=== PATIENT | female | born 1990 | race African-American/Black ===

== ENCOUNTER 2018-08-10 09:21 | Emergency (ER) | payer OTHER, SELFPAY ==
[2018-08-10] MEDS ORDERED: NA CHLORIDE 0.9% 1,000 ML ONE (10:31)
[2018-08-10] MEDS ORDERED: KETOROLAC 30 MG/ML INJ ONE (10:31)
[2018-08-10 10:35] LABS: Absolute Lymphocytes (CBC) 1.7 K/uL (0.7-4.9); Absolute Monocytes 0.4 K/uL (0.1-1.3); Absolute Neutrophil 4.6 K/uL (1.8-8.0); Basophils % 0.6 % (0-1.3); Eosinophils % 6.2 % (0-4.4); Hematocrit 37.7 % (36.0-45.0); Lymphocytes % 23.2 % (15.3-44.8); MCH 30.7 pg (27.0-35.0); MCV 90.6 fL (80-100); MPV 8.9 fL (7.6-11.3); Monocytes % 5.8 % (3.3-12.3); RBC Red Blood Cell Count 4.16 M/uL (3.86-4.86)
[2018-08-10 10:53] LABS: ALT/SGPT 23 U/L (12-78); AST/SGOT 20 U/L (15-37); Alkaline Phosphatase 59 U/L (45-117); BUN Blood Urea Nitrogen 6 mg/dL (7-18); Bicarbonate 29 mmol/L (21-32); Bilirubin Direct 0.2 mg/dL (0-0.2); Bilirubin Total 0.9 mg/dL (0.2-1.0); Glucose Level 80 mg/dL (74-106); Lipase 175 U/L (73-393); Potassium 3.4 mmol/L (3.5-5.1); Protein, Total 7.9 g/dL (6.4-8.2); Sodium Level 141 mmol/L (136-145)
--- NOTE | 2018-08-10 10:54 | RAD REPORT ---
EXAM DESCRIPTION: CT - Stone Protocol - 08/10/2018 10:38 am CLINICAL HISTORY: Abdominal pain. Flank pain COMPARISON: None. TECHNIQUE: Computed axial tomography of the abdomen pelvis was obtained without oral or IV contrast. Lack of IV and oral contrast limits evaluation of solid organs, bowel, and vessels. Coronal reformat evaristo images were obtained and reviewed. All CT scans are performed using dose optimization technique as appropriate and may include automated exposure control or mA/KV adjustment according to patient size. FINDINGS: A 2 millimeter calculus is present within the left kidney without hydronephrosis. A right renal calculus is not seen. A ureteral calculus is not visualized. A bladder calculus is not present. The liver, spleen, pancreas and adrenals appear grossly normal There is no evidence of diverticulitis. The appendix appears normal Small amount of ascites is seen. A moderate amount of stool is present throughout the colon. IMPRESSION: 2 millimeter nonobstructing left renal calculus
[2018-08-10 11:07] LABS: Urine Blood NEGATIVE (NEG); Urine Glucose NEGATIVE (NEG); Urine Protein NEGATIVE (NEG); Urine pH 7.5 (5.0-7.0)
--- NOTE | 2018-08-10 11:27 | ER ---
Nurse's Notes [facility] Name: Flower Cruz Age: 28 yrs Sex: Female : 1990 Arrival Date: 08/10/2018 Time: 09:34 Bed 8 Private MD: Diagnosis: Low back pain;Calculus of kidney-left Presentation: 08/10 09:34 Presenting complaint: EMS states: Pt c/o back spasms that began this morning and got ph progressively worse, pt reports hx of back spasms, c/o pain in mid back area that radiates down back and around both sides to abdomen. Transition of care: patient was not received from another setting of care. Onset of symptoms was August 10, 2018. Risk Assessment: Do you want to hurt yourself or someone else? Patient reports no desire to harm self or others. Initial Sepsis Screen: Does the patient meet any 2 criteria? No. Patient's initial sepsis screen is negative. Does the patient have a suspected source of infection? No. Patient's initial sepsis screen is negative. Care prior to arrival: Glucose check: 107. 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 - Social history:: Smoking status: Patient/guardian denies using tobacco. - Ebola Screening: : No symptoms or risks identified at this time. Screenin:00 Abuse screen: Denies threats or abuse. Denies injuries from another. Nutritional ph screening: No deficits noted. Tuberculosis screening: No symptoms or risk factors identified. Fall Risk None identified. Assessment: 10:00 General: Appears in no apparent distress. uncomfortable, slender, well groomed, ph Behavior is calm, cooperative, appropriate for age, Denies fever, feeling ill. Pain: Complains of pain in left mid back and right mid back Pain radiates to daniel flanks, RLQ, LLQ. Neuro: Level of Consciousness is awake, alert, obeys commands, Oriented to person, place, time, situation. Cardiovascular: Capillary refill < 3 seconds Patient's skin is warm and dry. Respiratory: Airway is patent Respiratory effort is even, unlabored, Respiratory pattern is regular, symmetrical. GI: Patient currently denies diarrhea, nausea, vomiting. : Reports pain in bilateral flank(s), in lower back. Derm: Skin is intact, is healthy with good turgor. Musculoskeletal: Circulation, motion, and sensation intact. Range of motion: intact in all extremities. 11:00 Reassessment: Patient appears in no apparent distress at this time. Patient and/or ph family updated on plan of care and expected duration. Pain level reassessed. Patient is alert, oriented x 3, equal unlabored respirations, skin warm/dry/pink. Vital Signs: 09:36 BP 119 / 74; Pulse 70; Resp 16; Temp 97.8; Pulse Ox 100% on R/A; Weight 58.97 kg; ph Height 5 ft. 0 in. (152.40 cm); Pain 7/10; 09:36 Body Mass Index 25.39 (58.97 kg, 152.40 cm) ph ED Course: 09:34 Patient arrived in ED. ph 09:36 Triage completed. ph 09:36 Michael Jordan NP is PHCP. pm1 09:36 Duane Tirado MD is Attending Physician. pm1 09:39 Arm band placed on. ph 10:00 Patient has correct armband on for positive identification. Placed in gown. Bed in low ph position. Call light in reach. Side rails up X 1. Pulse ox on. NIBP on. Warm blanket given. 10:01 Emma Ricardo, RADHA is Primary Nurse. ph 10:23 Initial lab(s) drawn, by ut, sent to lab. Inserted saline lock: 22 gauge in left hj antecubital area, using aseptic technique. Blood collected. 10:[address] via wheelchair. sj 10:34 CT completed. Patient tolerated procedure well. Patient moved back from CT. sj 10:38 CT Stone Protocol In Process Unspecified. EDMS 11:40 No provider procedures requiring assistance completed. IV discontinued, intact, hb bleeding controlled, No redness/swelling at site. Pressure dressing applied. Administered Medications: 11:10 Drug: NS 0.9% 1000 ml Route: IV; Rate: 1000 ml; Site: left antecubital; ph 11:40 Follow up: Response: No adverse reaction; IV Status: Completed infusion ph 11:10 Drug: TORadol 30 mg Route: IVP; Site: left antecubital; ph 11:30 Follow up: Response: No adverse reaction; Pain is decreased ph Outcome: 11:26 Discharge ordered by . pm1 11:40 Discharged to home ambulatory. hb 11:40 Condition: stable 11:40 Discharge instructions given to patient, Instructed on discharge instructions, follow up and referral plans. medication usage, Demonstrated understanding of instructions, follow-up care, medications, Prescriptions given X 2. 11:41 Patient left the ED. hb Signatures: Dispatcher [employer] EDMS Winter Gilmore Patricia, RN RN Saad Solis RN RN Michael Jordan, MONTESSORI TEACHER MONTESSORI TEACHER pm1 Addie Slaughter RN RN hb
--- NOTE | 2018-08-10 11:27 | EDPHYS ---
Physician Documentation [facility] Name: Flower Cruz Age: 28 yrs Sex: Female : 1990 Arrival Date: 08/10/2018 Time: 09:34 Bed 8 Private MD: ED Physician Duane Tirado HPI: 08/10 10:00 This 28 yrs old Black Female presents to ER via EMS with complaints of Back Pain. pm1 10:00 The patient presents with pain that is acute, with no known mechanism of injury. The pm1 symptoms are located in the left mid back and right mid back. Onset: The symptoms/episode began/occurred this morning. The pain radiates to the right upper quadrant and left upper quadrant. Associated signs and symptoms: Pertinent negatives: chest pain, dysuria, fever, headache, nausea, vomiting, chest pain. The problem was sustained from unknown cause. Modifying factors: The patient symptoms are alleviated by remaining still, the patient symptoms are aggravated by movement. Severity of symptoms: in the emergency department the symptoms are actually worse. The patient has experienced similar episodes in the past, a few times, and the symptoms today are exactly the same, to previous diagnosis of back muscle spasms. Seen at another ER multiple months ago and given medications for pain. No other further work up was performed. The patient has not recently seen a physician. 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 - Social history:: Smoking status: Patient/guardian denies using tobacco. - Ebola Screening: : No symptoms or risks identified at this time. ROS: 10:00 Constitutional: Negative for fever, chills, and weight loss, Eyes: Negative for injury, pm1 pain, redness, and discharge, ENT: Negative for injury, pain, and discharge, Neck: Negative for injury, pain, and swelling, Cardiovascular: Negative for chest pain, palpitations, and edema, Respiratory: Negative for shortness of breath, cough, wheezing, and pleuritic chest pain, Abdomen/GI: Negative for abdominal pain, nausea, vomiting, diarrhea, and constipation, : Negative for injury, bleeding, discharge, and swelling, MS/Extremity: Negative for injury and deformity. 10:00 Skin: Negative for injury, rash, and discoloration, Neuro: Negative for headache, weakness, numbness, tingling, and seizure. 10:00 Back: Positive for flank pain, bilaterally. Exam: 10:00 Constitutional: This is a well developed, well nourished patient who is awake, alert, pm1 and in no acute distress. Head/Face: Normocephalic, atraumatic. Eyes: Pupils equal round and reactive to light, extra-ocular motions intact. Lids and lashes normal. Conjunctiva and sclera are non-icteric and not injected. Cornea within normal limits. Periorbital areas with no swelling, redness, or edema. ENT: Nares patent. No nasal discharge, no septal abnormalities noted. Tympanic membranes are normal and external auditory canals are clear. Oropharynx with no redness, swelling, or masses, exudates, or evidence of obstruction, uvula midline. Mucous membranes moist. Neck: Trachea midline, no thyromegaly or masses palpated, and no cervical lymphadenopathy. Supple, full range of motion without nuchal rigidity, or vertebral point tenderness. No Meningismus. Chest/axilla: Normal chest wall appearance and motion. Nontender with no deformity. No lesions are appreciated. Cardiovascular: Regular rate and rhythm with a normal S1 and S2. No gallops, murmurs, or rubs. Normal PMI, no JVD. No pulse deficits. Respiratory: Lungs have equal breath sounds bilaterally, clear to auscultation and percussion. No rales, rhonchi or wheezes noted. No increased work of breathing, no retractions or nasal flaring. Abdomen/GI: Soft, non-tender, with normal bowel sounds. No distension or tympany. No guarding or rebound. No evidence of tenderness throughout. 10:00 Skin: Warm, dry with normal turgor. Normal color with no rashes, no lesions, and no evidence of cellulitis. MS/ Extremity: Pulses equal, no cyanosis. Neurovascular intact. Full, normal range of motion. 10:00 Back: normal spinal alignment noted, muscle spasm, is appreciated in the left mid back and right mid back. 10:00 Neuro: Orientation: is normal, Mentation: is normal, Motor: is normal, moves all fours, strength is 5/5 in all extremities, Gait: is steady, at a normal pace, without difficulty. Vital Signs: 09:36 BP 119 / 74; Pulse 70; Resp 16; Temp 97.8; Pulse Ox 100% on R/A; Weight 58.97 kg; ph Height 5 ft. 0 in. (152.40 cm); Pain 7/10; 09:36 Body Mass Index 25.39 (58.97 kg, 152.40 cm) ph MDM: 09:42 Patient medically screened. pm1 11:16 Data reviewed: vital signs. Data interpreted: Pulse oximetry: on room air is 100 %. pm1 Interpretation: normal. Counseling: I had a detailed discussion with the patient and/or guardian regarding: the historical points, exam findings, and any diagnostic results supporting the discharge/admit diagnosis, lab results, radiology results, to return to the emergency department if symptoms worsen or persist or if there are any questions or concerns that arise at home. 08/10 09:51 Order name: Basic Metabolic Panel; Complete Time: 11:15 pm1 08/10 09:51 Order name: CBC with Diff; Complete Time: 11:15 pm1 08/10 09:51 Order name: Creatinine for Radiology; Complete Time: 11:15 pm1 08/10 09:51 Order name: Hepatic Function; Complete Time: 11:15 pm1 08/10 09:51 Order name: Lipase; Complete Time: 11:15 pm1 08/10 10:37 Order name: Urine Dipstick--Ancillary (enter results); Complete Time: 11:15 eb 08/10 09:51 Order name: Urine Dipstick-Ancillary (obtain specimen); Complete Time: 10: pm08/10 09:51 Order name: Urine Test (obtain specimen); Complete Time: 10: pm1 08/10 09:51 Order name: IV Saline Lock; Complete Time: : pm08/10 09:51 Order name: Labs collected and sent; Complete Time: : pm08/10 09:51 Order name: CT Stone Protocol; Complete Time: 11:15 pm1 08/10 10:37 Order name: Urine --Ancillary (enter results); Complete Time: 11:15 eb Administered Medications: 11:10 Drug: NS 0.9% 1000 ml Route: IV; Rate: 1000 ml; Site: left antecubital; ph 11:40 Follow up: Response: No adverse reaction; IV Status: Completed infusion ph 11:10 Drug: TORadol 30 mg Route: IVP; Site: left antecubital; ph 11:30 Follow up: Response: No adverse reaction; Pain is decreased ph Disposition: 13:56 Co-signature as Attending Physician, Duane Tirado MD I agree with the assessment and kdr plan of care. Disposition: 08/10/18 11:26 Discharged to Home. Impression: Low back pain, Calculus of kidney - left. - Condition is Stable. - Discharge Instructions: Back Pain, Adult, Kidney Stones. - Prescriptions for Naprosyn 500 mg Oral Tablet - take 1 tablet by ORAL route 2 times per day take with food; 30 tablet. Cyclobenzaprine 10 mg Oral Tablet - take 1 tablet by ORAL route every 8 hours As needed; 30 tablet. - Medication Reconciliation Form, Thank You Letter, Antibiotic Education, Prescription Opioid Use form. - Work release form (08/10/18 12:22). hb - Follow up: Emergency Department; When: As needed; Reason: Worsening of condition. Follow up: Private Physician; When: 2 - 3 days; Reason: Recheck today's complaints, Continuance of care, Re-evaluation by your physician. - Problem is new. - Symptoms have improved. Signatures: Dispatcher [employer] EDMS Duane Tirado MD MD [facility] Emma Ricardo RN RN Michael Jordan, MARIO RESOURCING CONSULTANT pm1 Addie Slaughter RN RN Corrections: (The following items were deleted from the chart) 11:41 11:26 08/10/2018 11:26 Discharged to Home. Impression: Low back pain; Calculus of hb kidney - left. Condition is Stable. Forms are Medication Reconciliation Form, Thank You Letter, Antibiotic Education, Prescription Opioid Use. Follow up: Emergency Department; When: As needed; Reason: Worsening of condition. Follow up: Private Physician; When: 2 - 3 days; Reason: Recheck today's complaints, Continuance of care, Re-evaluation by your physician. Problem is new. Symptoms have improved. pm1
[2018-08-10 11:44] VITALS: BP 119/74; TEMP 97.8; O2SAT 100
== END 2018-08-10 11:41 | disposition home or self-care (01) ==
LOC: ER 09:21
DX: N20.0 Calculus of kidney (principal)
CPT/HCPCS: 36415; 74176; 76377; 80048; 80076; 81003; 81025; 83690; 85025; 96374; 99284; J7030

== ENCOUNTER 2018-08-13 10:35 | Emergency (ER) | payer SELFPAY ==
[2018-08-13] MEDS ORDERED: HYDROCODONE/APAP 7.5/325 MG TAB ONE (11:28)
--- NOTE | 2018-08-13 11:46 | RAD REPORT ---
EXAM DESCRIPTION: RAD - Knee Right 3 View - 08/13/2018 11:39 am CLINICAL HISTORY: PAIN COMPARISON: No comparisons FINDINGS: No fracture or dislocation seen. Small joint effusion is present.
--- NOTE | 2018-08-13 11:59 | EDPHYS ---
Physician Documentation [facility] Name: Flower Cruz Age: 28 yrs Sex: Female : 1990 Arrival Date: 08/13/2018 Time: 10:38 Bed 10 Private MD: None, None ED Physician Thomas Starr HPI: 08/13 12:01 This 28 yrs old Black Female presents to ER via Ambulatory with complaints of Knee Pain.kb 12:01 The patient presents with decreased range of motion, an injury, pain, swelling, kb tenderness. The complaints affect the medial aspect of right knee. Context: The problem was sustained inside, resulted from twisting of the extremity, dancing, the patient can partially bear weight, the patient is able to ambulate. Onset: The symptoms/episode began/occurred last night. Modifying factors: The symptoms are alleviated by nothing. the symptoms are aggravated by movement, weight bearing, bending knee. Associated signs and symptoms: Pertinent positives: swelling, Pertinent negatives calf tenderness, fever, nausea, numbness, rash, tingling, vomiting, warmth, weakness. Treatment prior to arrival includes: no previous treatment. Severity of symptoms: At their worst the symptoms were moderate, in the emergency department the symptoms are unchanged. The patient has not experienced similar symptoms in the past. The patient has not recently seen a physician. 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 - Social history:: Smoking status: Patient/guardian denies using tobacco, Patient/guardian denies using alcohol. - Ebola Screening: : Patient negative for fever greater than or equal to 101.5 degrees Fahrenheit, and additional compatible Ebola Virus Disease symptoms Patient negative for fever greater than or equal to 101.5 degrees Fahrenheit, and additional compatible Ebola Virus Disease symptoms Patient denies exposure to infectious person Patient denies travel to an Ebola-affected area in the 21 days before illness onset. ROS: 12:00 Constitutional: Negative for fever, chills, and weight loss, Cardiovascular: Negative kb for chest pain, palpitations, and edema, Respiratory: Negative for shortness of breath, cough, wheezing, and pleuritic chest pain, Abdomen/GI: Negative for abdominal pain, nausea, vomiting, diarrhea, and constipation, Skin: Negative for injury, rash, and discoloration, Neuro: Negative for headache, weakness, numbness, tingling, and seizure. 12:00 MS/extremity: Positive for decreased range of motion, pain, swelling, tenderness, of the right knee. Exam: 12:00 Constitutional: This is a well developed, well nourished patient who is awake, alert, kb and in no acute distress. Head/Face: Normocephalic, atraumatic. Chest/axilla: Normal chest wall appearance and motion. Nontender with no deformity. No lesions are appreciated. Cardiovascular: Regular rate and rhythm with a normal S1 and S2. No gallops, murmurs, or rubs. Normal PMI, no JVD. No pulse deficits. Respiratory: Lungs have equal breath sounds bilaterally, clear to auscultation and percussion. No rales, rhonchi or wheezes noted. No increased work of breathing, no retractions or nasal flaring. Abdomen/GI: Soft, non-tender, with normal bowel sounds. No distension or tympany. No guarding or rebound. No evidence of tenderness throughout. Skin: Warm, dry with normal turgor. Normal color with no rashes, no lesions, and no evidence of cellulitis. Neuro: Awake and alert, GCS 15, oriented to person, place, time, and situation. Cranial nerves II-XII grossly intact. Motor strength 5/5 in all extremities. Sensory grossly intact. Cerebellar exam normal. Normal gait. 12:00 Musculoskeletal/extremity: Extremities: grossly normal except: noted in the right knee: decreased ROM, pain, swelling, tenderness, ROM: limited active range of motion, in the right knee, limited active range of motion due to pain, in the right knee, Circulation is intact in all extremities. Sensation intact. Weight bearing: can bear weight with assistance only. Vital Signs: 10:59 BP 127 / 87; Pulse 84; Resp 18; Temp 98.6(O); Pulse Ox 100% on R/A; Weight 58.97 kg; hj Height 5 ft. 0 in. (152.40 cm); Pain 10/10; 10:59 Body Mass Index 25.39 (58.97 kg, 152.40 cm) aury MDM: 11:14 Patient medically screened. kb 12:01 Data reviewed: vital signs, nurses notes. Data interpreted: Pulse oximetry: on room air kb is 100 %. Interpretation: normal. Counseling: I had a detailed discussion with the patient and/or guardian regarding: the historical points, exam findings, and any diagnostic results supporting the discharge/admit diagnosis, radiology results, the need for outpatient follow up, a orthopedic surgeon, to return to the emergency department if symptoms worsen or persist or if there are any questions or concerns that arise at home. 08/13 11:14 Order name: Knee Right 3 View XRAY; Complete Time: 11:47 kb 08/13 11:49 Order name: Knee Immobilizer; Complete Time: 13:05 kb 08/13 11:49 Order name: Crutches; Complete Time: 13:05 kb Administered Medications: 11:22 Drug: [place] (7.5 mg-325 mg) 1 tabs Route: PO; iw Disposition: 08/14 10:42 Co-signature as Attending Physician, Thomas Starr MD. ma2 Disposition: 08/13/18 11:59 Discharged to Home. Impression: Pain in right knee. - Condition is Stable. - Discharge Instructions: Knee Pain, [id number]. - Prescriptions for Cyclobenzaprine 10 mg Oral Tablet - take 1 tablet by ORAL route every 8 hours As needed; 21 tablet. Diclofenac Sodium 75 mg Oral Tablet Sustained Release - take 1 tablet by ORAL route 2 times per day; 30 tablet. - Work release form, Medication Reconciliation Form, Thank You Letter, Antibiotic Education, Prescription Opioid Use form. - Follow up: Emergency Department; When: As needed; Reason: Worsening of condition. Follow up: Private Physician; When: 2 - 3 days; Reason: Recheck today's complaints, Continuance of care, Re-evaluation by your physician. Signatures: Dispatcher [employer] Amaris Cardenas FNP-C FNP-Ckb Williams, Irene RN Saad Gonsalves RN RN hj Alzahri, Mohammad, MD MD ma2 Corrections: (The following items were deleted from the chart) 08/13 13:05 11:59 08/13/2018 11:59 Discharged to Home. Impression: Pain in right knee. Condition is iw Stable. Forms are Medication Reconciliation Form, Thank You Letter, Antibiotic Education, Prescription Opioid Use. Follow up: Emergency Department; When: As needed; Reason: Worsening of condition. Follow up: Private Physician; When: 2 - 3 days; Reason: Recheck today's complaints, Continuance of care, Re-evaluation by your physician. kb
--- NOTE | 2018-08-13 11:59 | ER ---
Nurse's Notes [facility] Name: Flower Cruz Age: 28 yrs Sex: Female : 1990 Arrival Date: 08/13/2018 Time: 10:38 Bed 10 Private MD: None, None Diagnosis: Pain in right knee Presentation: 08/13 10:57 Presenting complaint: Patient states: last night, i twisted my R knee; rep rots hj swelling; pain is 10/10;. Transition of care: patient was not received from another setting of care. Onset of symptoms was August 13, 2018. Risk Assessment: Do you want to hurt yourself or someone else? Patient reports no desire to harm self or others. Initial Sepsis Screen: Does the patient meet any 2 criteria? No. Patient's initial sepsis screen is negative. Does the patient have a suspected source of infection? No. Patient's initial sepsis screen is negative. Care prior to arrival: None. 10:57 Method Of Arrival: Ambulatory 10:57 Acuity: JUWAN 4 hj Triage Assessment: 10:58 General: Appears in no apparent distress. uncomfortable, slender, Behavior is calm, hj cooperative, appropriate for age. Pain: Complains of pain in right knee. 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 - Social history:: Smoking status: Patient/guardian denies using tobacco, Patient/guardian denies using alcohol. - Ebola Screening: : Patient negative for fever greater than or equal to 101.5 degrees Fahrenheit, and additional compatible Ebola Virus Disease symptoms Patient negative for fever greater than or equal to 101.5 degrees Fahrenheit, and additional compatible Ebola Virus Disease symptoms Patient denies exposure to infectious person Patient denies travel to an Ebola-affected area in the 21 days before illness onset. Screenin:58 Abuse screen: Denies threats or abuse. Denies injuries from another. Nutritional hj screening: No deficits noted. Tuberculosis screening: No symptoms or risk factors identified. Fall Risk None identified. Assessment: 11:18 General: Appears in no apparent distress. Behavior is calm, cooperative. Pain: iw Complains of pain in right knee Pain currently is 10 out of 10 on a pain scale. Neuro: Level of Consciousness is awake, alert, obeys commands, Oriented to person, place, time, situation, Moves all extremities. Cardiovascular: Capillary refill < 3 seconds in bilateral fingers Patient's skin is warm and dry. Respiratory: Respiratory effort is even, unlabored, Respiratory pattern is regular, symmetrical. Derm: Skin is intact, is healthy with good turgor. Musculoskeletal: Range of motion: limited in right knee. Vital Signs: 10:59 BP 127 / 87; Pulse 84; Resp 18; Temp 98.6(O); Pulse Ox 100% on R/A; Weight 58.97 kg; hj Height 5 ft. 0 in. (152.40 cm); Pain 10/10; 10:59 Body Mass Index 25.39 (58.97 kg, 152.40 cm) ED Course: 10:38 Patient arrived in ED. mr 10:38 None, None is Private Physician. mr 10:58 Triage completed. hj 10:59 Arm band placed on right wrist. hj 11:00 Patient has correct armband on for positive identification. Bed in low position. Call hj light in reach. Side rails up X 1. Adult w/ patient. 11:13 Sonia Pena, RADHA is Primary Nurse. iw 11:14 Amaris Blanchard FNP-C is PHCP. kb 11:14 Thomas Starr MD is Attending Physician. kb 11:34 No provider procedures requiring assistance completed. Patient did not have IV access iw during this emergency room visit. 11:39 Knee Right 3 View XRAY In Process Unspecified. EDMS Administered Medications: 11:22 Drug: [place] (7.5 mg-325 mg) 1 tabs Route: PO; iw Outcome: 11:59 Discharge ordered by . kb 13:04 Discharged to home ambulatory, with crutches, with family. iw 13:04 Condition: good 13:04 Discharge instructions given to patient, family, Instructed on discharge instructions, follow up and referral plans. medication usage, Demonstrated understanding of instructions, follow-up care, medications, Prescriptions given X 2. 13:05 Patient left the ED. iw Signatures: Dispatcher [employer] EDMS Amaris Blanchard FNP-C FNP-Shital Jones mr Sonia Pena, RADHA GARCIA iw Saad Solis RN RN hj Corrections: (The following items were deleted from the chart) 11:00 10:59 Pulse 84bpm; Resp 18bpm; Pulse Ox 100% RA; Temp 98.6F Oral; 58.97 kg; Height 5 hj ft. 0 in.; BMI: 25.3; Pain 08/09; hj
[2018-08-13 13:09] VITALS: BP 127/87; TEMP 98.6; O2SAT 100
== END 2018-08-13 13:05 | disposition home or self-care (01) ==
LOC: ER 10:35
DX: M25.561 Pain in right knee (principal)
CPT/HCPCS: 99283

== ENCOUNTER 2018-10-08 21:44 | Emergency (ER) | payer SELFPAY ==
[2018-10-08] MEDS ORDERED: DIAZEPAM 5 MG TABLET ONE (22:30)
[2018-10-08 23:09] LABS: Urine Blood NEGATIVE (NEG); Urine Glucose NEGATIVE (NEG); Urine Protein NEGATIVE (NEG)
--- NOTE | 2018-10-08 23:28 | ER ---
Nurse's Notes [facility] Name: Flower Cruz Age: 28 yrs Sex: Female : 1990 Arrival Date: 10/08/2018 Time: 21:46 Bed 13 Private MD: Diagnosis: Muscle spasm of back Presentation: 10/08 21:54 Presenting complaint: Patient states: all over back spasms. pt stated 3rd time in the ak1 past few months, last time was dx kidney stone. pt stated pain started at noon today. Transition of care: patient was not received from another setting of care. Onset of symptoms was October 08, 2018. Risk Assessment: Do you want to hurt yourself or someone else? Patient reports no desire to harm self or others. Initial Sepsis Screen: Does the patient meet any 2 criteria? No. Patient's initial sepsis screen is negative. Does the patient have a suspected source of infection? No. Patient's initial sepsis screen is negative. Care prior to arrival: None. 21:54 Method Of Arrival: Ambulatory ak1 21:54 Acuity: JUWAN 4 ak1 Triage Assessment: 21:55 General: Appears in no apparent distress. Behavior is calm, cooperative. Pain: ak1 Complains of pain in back. EENT: No signs and/or symptoms were reported regarding the EENT system. Neuro: No deficits noted. Cardiovascular: No deficits noted. Respiratory: No deficits noted. GI: No signs and/or symptoms were reported involving the gastrointestinal system. : No signs and/or symptoms were reported regarding the genitourinary system. Denies burning with urination. Derm: No signs and/or symptoms reported regarding the dermatologic system. Musculoskeletal: Reports pain in back since noon today. 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 - Social history:: Smoking status: Patient/guardian denies using tobacco. - Ebola Screening: : No symptoms or risks identified at this time. Screenin:56 Abuse screen: Denies threats or abuse. Denies injuries from another. Nutritional ak1 screening: No deficits noted. Tuberculosis screening: No symptoms or risk factors identified. Fall Risk None identified. Assessment: 22:06 General: Appears in no apparent distress. uncomfortable, Behavior is calm, cooperative, jd3 appropriate for age. Pain: Complains of pain in back Quality of pain is described as aching, sharp. Neuro: Level of Consciousness is awake, alert, obeys commands, Oriented to person, place, time, situation. Cardiovascular: Capillary refill < 3 seconds Patient's skin is warm and dry. Respiratory: Airway is patent Respiratory effort is even, unlabored, Respiratory pattern is regular, symmetrical. GI: No signs and/or symptoms were reported involving the gastrointestinal system. : No signs and/or symptoms were reported regarding the genitourinary system. Denies burning with urination, inability to void. EENT: No signs and/or symptoms were reported regarding the EENT system. Derm: Skin is intact, Skin is dry, Skin is normal, Skin temperature is warm. Musculoskeletal: Circulation, motion, and sensation intact. Range of motion: intact in all extremities. 22:48 Reassessment: Patient appears in no apparent distress at this time. Patient and/or jd3 family updated on plan of care and expected duration. Pain level reassessed. Patient is alert, oriented x 3, equal unlabored respirations, skin warm/dry/pink. 23:42 Reassessment: Patient appears in no apparent distress at this time. Patient and/or jd3 family updated on plan of care and expected duration. Pain level reassessed. Patient is alert, oriented x 3, equal unlabored respirations, skin warm/dry/pink. Patient states feeling better. Vital Signs: 21:53 BP 135 / 93; Pulse 74; Resp 16; Temp 97.8(O); Pulse Ox 100% on R/A; Weight 58.97 kg ak1 (R); Height 5 ft. 0 in. (152.40 cm) (R); Pain 8/10; 22:48 BP 132 / 89; Pulse 65; Resp 16 S; Pulse Ox 97% on R/A; jd3 21:53 Body Mass Index 25.39 (58.97 kg, 152.40 cm) ak1 ED Course: 21:46 Patient arrived in ED. ds1 21:48 Calderon, Earle, RN is Primary Nurse. jd3 21:52 Jayme Escalante PA is PHCP. jr8 21:52 Quan Ritter MD is Attending Physician. jr8 21:53 Arm band placed on Patient placed in an exam room, on a stretcher, on pulse oximetry, ak1 Patient notified of wait time. 21:55 Triage completed. ak1 21:56 Patient has correct armband on for positive identification. Bed in low position. Call ak1 light in reach. Side rails up X 1. Adult w/ patient. Pulse ox on. NIBP on. 23:39 No provider procedures requiring assistance completed. Patient did not have IV access jd3 during this emergency room visit. Administered Medications: 22:28 Drug: Valium 5 mg Route: PO; jd3 23:38 Follow up: Response: No adverse reaction jd3 Outcome: 23:27 Discharge ordered by . jr8 23:39 Discharged to home ambulatory, with family. jd3 23:39 Condition: stable 23:39 Discharge instructions given to patient, family, Instructed on discharge instructions, follow up and referral plans. medication usage, Demonstrated understanding of instructions, follow-up care, medications, Prescriptions given X 2. 23:43 Patient left the ED. jd3 Signatures: Jhoana Santoro ds1 Jayme Escalante PA PA jr8 Adrienne Alva RN RN ak1 Earle Calderon RN RN jd3 Corrections: (The following items were deleted from the chart) 22:07 21:58 General: Appears jd3 jd3
--- NOTE | 2018-10-08 23:28 | EDPHYS ---
Physician Documentation [facility] Name: Flower Cruz Age: 28 yrs Sex: Female : 1990 Arrival Date: 10/08/2018 Time: 21:46 Bed 13 Private MD: ED Physician Quan Ritter HPI: 10/08 22:59 This 28 yrs old Black Female presents to ER via Ambulatory with complaints of Back jr8 Spasms. 22:59 Onset: The symptoms/episode began/occurred acutely, today. Associated signs and jr8 symptoms: The patient has no apparent associated signs or symptoms. Modifying factors: The patient symptoms are alleviated by nothing, the patient symptoms are aggravated by nothing. The patient has experienced similar episodes in the past, a few times. The patient has not recently seen a physician. 22:59 Patient stated that she was getting up out of a chair when she felt her back starting jr8 to spasm. Since then pain with any movement. Denies abdominal pain, n/v/d, bowel, or bladder dysfunction. Stated that she has had this a few other time in the past. Denies injury . 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 - Social history:: Smoking status: Patient/guardian denies using tobacco. - Ebola Screening: : No symptoms or risks identified at this time. ROS: 22:59 Eyes: Negative for injury, pain, redness, and discharge, ENT: Negative for injury, jr8 pain, and discharge, Neck: Negative for injury, pain, and swelling, Cardiovascular: Negative for chest pain, palpitations, and edema, Respiratory: Negative for shortness of breath, cough, wheezing, and pleuritic chest pain, Abdomen/GI: Negative for abdominal pain, nausea, vomiting, diarrhea, and constipation, MS/Extremity: Negative for injury and deformity, Skin: Negative for injury, rash, and discoloration, Neuro: Negative for headache, weakness, numbness, tingling, and seizure. 22:59 Back: Positive for pain at rest, pain with movement. Exam: 22:59 Eyes: Pupils equal round and reactive to light, extra-ocular motions intact. Lids and jr8 lashes normal. Conjunctiva and sclera are non-icteric and not injected. Cornea within normal limits. Periorbital areas with no swelling, redness, or edema. ENT: Nares patent. No nasal discharge, no septal abnormalities noted. Tympanic membranes are normal and external auditory canals are clear. Oropharynx with no redness, swelling, or masses, exudates, or evidence of obstruction, uvula midline. Mucous membranes moist. Neck: Trachea midline, no thyromegaly or masses palpated, and no cervical lymphadenopathy. Supple, full range of motion without nuchal rigidity, or vertebral point tenderness. No Meningismus. Cardiovascular: Regular rate and rhythm with a normal S1 and S2. No gallops, murmurs, or rubs. Normal PMI, no JVD. No pulse deficits. Respiratory: Lungs have equal breath sounds bilaterally, clear to auscultation and percussion. No rales, rhonchi or wheezes noted. No increased work of breathing, no retractions or nasal flaring. Abdomen/GI: Soft, non-tender, with normal bowel sounds. No distension or tympany. No guarding or rebound. No evidence of tenderness throughout. Skin: Warm, dry with normal turgor. Normal color with no rashes, no lesions, and no evidence of cellulitis. MS/ Extremity: Pulses equal, no cyanosis. Neurovascular intact. Full, normal range of motion. Neuro: Awake and alert, GCS 15, oriented to person, place, time, and situation. Cranial nerves II-XII grossly intact. Motor strength 5/5 in all extremities. Sensory grossly intact. Cerebellar exam normal. Normal gait. 22:59 Back: pain, that is moderate, of the left subscapular area, right subscapular area, left low back, left mid back, right mid back and right low back, ROM is painful, normal spinal alignment noted, CVA tenderness, is absent, muscle spasm, is appreciated in the left low back, left mid back, right mid back and right low back. Vital Signs: 21:53 BP 135 / 93; Pulse 74; Resp 16; Temp 97.8(O); Pulse Ox 100% on R/A; Weight 58.97 kg ak1 (R); Height 5 ft. 0 in. (152.40 cm) (R); Pain 8/10; 22:48 BP 132 / 89; Pulse 65; Resp 16 S; Pulse Ox 97% on R/A; jd3 21:53 Body Mass Index 25.39 (58.97 kg, 152.40 cm) ak1 MDM: 21:52 Patient medically screened. jr8 23:26 Data reviewed: vital signs, nurses notes, lab test result(s), and as a result, I will jr8 discharge patient. Data interpreted: Pulse oximetry: on room air is 97 %. Interpretation: normal. Counseling: I had a detailed discussion with the patient and/or guardian regarding: the historical points, exam findings, and any diagnostic results supporting the discharge/admit diagnosis, lab results, the need for outpatient follow up, a family practitioner, to return to the emergency department if symptoms worsen or persist or if there are any questions or concerns that arise at home. Response to treatment: the patient's symptoms have markedly improved after treatment. ED course: Patient resting comfortably in exam room. Pain less. Able to move easier. Will send home on medicine to help. Advised no heavy lifting for one week. Heat as needed. To follow up with PCP . 10/08 22:43 Order name: Urine Dipstick--Ancillary (enter results) 4 10/08 22:43 Order name: Urine --Ancillary (enter results); Complete Time: 23:23 ag4 10/08 22:28 Order name: Urine Dipstick-Ancillary (obtain specimen); Complete Time: 22:28 jd3 10/08 22:28 Order name: Urine Test (obtain specimen); Complete Time: 22:28 jd3 Administered Medications: 22:28 Drug: Valium 5 mg Route: PO; jd3 23:38 Follow up: Response: No adverse reaction jd3 Disposition: 10/09 01:35 Co-signature as Attending Physician, Quan Ritter MD I agree with the assessment and 4 plan of care. Disposition: 10/08/18 23:27 Discharged to Home. Impression: Muscle spasm of back. - Condition is Stable. - Discharge Instructions: Muscle Cramps and Spasms, Back Exercises, [id number], Heat Therapy. - Prescriptions for Ibuprofen 800 mg Oral Tablet - take 1 tablet by ORAL route every 12 hours As needed take with food; 20 tablet. Zanaflex 4 mg Oral Tablet - take 1 tablet by ORAL route every 8 hours As needed; 20 tablet. - Work release form, Medication Reconciliation Form, Thank You Letter, Antibiotic Education, Prescription Opioid Use form. - Follow up: Private Physician; When: 2 - 3 days; Reason: Recheck today's complaints, Continuance of care, Re-evaluation by your physician. - Problem is new. - Symptoms have improved. Signatures: Dispatcher [employer] EDMS Jayme Escalante PA PA jr8 Adrienne Alva, RN RN ak1 Earle Calderon RN RN jd3 Quan Ritter MD MD tw4 Corrections: (The following items were deleted from the chart) 10/08 23:43 23:27 10/08/2018 23:27 Discharged to Home. Impression: Muscle spasm of back. Condition jd3 is Stable. Forms are Medication Reconciliation Form, Thank You Letter, Antibiotic Education, Prescription Opioid Use. Follow up: Private Physician; When: 2 - 3 days; Reason: Recheck today's complaints, Continuance of care, Re-evaluation by your physician. Problem is new. Symptoms have improved. jr8
[2018-10-08 23:48] VITALS: TEMP 97.8
[2018-10-08 23:49] VITALS: BP 132/89; O2SAT 97
== END 2018-10-08 23:43 | disposition home or self-care (01) ==
LOC: ER 21:44
DX: M62.830 Muscle spasm of back (principal)
CPT/HCPCS: 81003; 81025; 99283

== ENCOUNTER 2018-11-02 18:19 | Emergency (ER) | payer SELFPAY ==
--- NOTE | 2018-11-02 20:20 | ER ---
Nurse's Notes [facility] Name: Flower Cruz Age: 28 yrs Sex: Female : 1990 Arrival Date: 11/02/2018 Time: 18:20 Bed 17 Private MD: None, None Diagnosis: Muscle spasm Presentation: 11/02 18:31 Presenting complaint: Patient states: back spasms on and off for the past two months. ch getting worse today my work sent me home and said I have to get it checked. Transition of care: patient was not received from another setting of care. Onset of symptoms was August 2018. Risk Assessment: Do you want to hurt yourself or someone else? Patient reports no desire to harm self or others. Initial Sepsis Screen: Does the patient meet any 2 criteria? No. Patient's initial sepsis screen is negative. Does the patient have a suspected source of infection? No. Patient's initial sepsis screen is negative. Care prior to arrival: None. 18:31 Method Of Arrival: Ambulatory 18:31 Acuity: JUWAN 3 Triage Assessment: 18:32 General: Appears in no apparent distress. comfortable, Behavior is calm, cooperative, ch appropriate for age. Pain: Complains of pain in left scapular area, left subscapular area, thoracic area, lumbar area, left low back and left mid back Pain currently is 8 out of 10 on a pain scale. Musculoskeletal: Circulation, motion, and sensation intact. Capillary refill < 3 seconds, in bilateral fingers. toes. Swelling absent. 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 - Social history:: Smoking status: Patient/guardian denies using tobacco, Patient/guardian denies using alcohol, street drugs. - Ebola Screening: : Patient negative for fever greater than or equal to 101.5 degrees Fahrenheit, and additional compatible Ebola Virus Disease symptoms Patient denies exposure to infectious person Patient denies travel to an Ebola-affected area in the 21 days before illness onset No symptoms or risks identified at this time. Screenin:40 Abuse screen: Denies threats or abuse. Denies injuries from another. Nutritional tl1 screening: No deficits noted. Tuberculosis screening: No symptoms or risk factors identified. Fall Risk None identified. Assessment: 19:37 General: Appears in no apparent distress. Behavior is calm, cooperative, appropriate tl1 for age. Pain: Complains of pain in back and left mid back and left low back and lumbar area and thoracic area and left subscapular area and left scapular area. 19:38 Neuro: Level of Consciousness is awake, alert, obeys commands, Oriented to person, tl1 place, time, situation, News Operations Manager are equal bilaterally Moves all extremities. Gait is steady. Cardiovascular: No deficits noted. Respiratory: Airway is patent Trachea midline Respiratory effort is even, unlabored, Breath sounds are clear bilaterally. GI: Abdomen is non-distended, Bowel sounds present X 4 quads. : No signs and/or symptoms were reported regarding the genitourinary system. EENT: No signs and/or symptoms were reported regarding the EENT system. Derm: No signs and/or symptoms reported regarding the dermatologic system. Musculoskeletal: Circulation, motion, and sensation intact. Capillary refill < 3 seconds, Range of motion: intact in all extremities, Reports pain in back and left mid back and left low back and lumbar area and thoracic area and left subscapular area and left scapular area. Vital Signs: 18:32 BP 141 / 99; Pulse 74; Resp 16; Temp 99.3; Pulse Ox 99% ; Weight 58.97 kg; Height 5 ft. (152.40 cm); Pain 8/10; 19:15 BP 138 / 99; Pulse 61; Resp 17; Pulse Ox 97% ; tl1 20:32 BP 142 / 97; Pulse 69; Resp 16; Temp 99; Pulse Ox 98% on R/A; Pain 8/10; tl1 18:32 Body Mass Index 25.39 (58.97 kg, 152.40 cm) ED Course: 18:20 Patient arrived in ED. sb2 18:21 None, None is Private Physician. sb2 18:32 Triage completed. 18:32 Arm band placed on right wrist. Patient placed in waiting room. 18:32 Patient has correct armband on for positive identification. Bed in low position. tl1 19:15 Dora Caprio, RN is Primary Nurse. tl1 19:37 Elijah Lopez PA is PHCP. [facility] 19:37 Duane Tirado MD is Attending Physician. [facility] 20:32 No provider procedures requiring assistance completed. Patient did not have IV access tl1 during this emergency room visit. Administered Medications: No medications were administered Outcome: 20:19 Discharge ordered by MD. [facility] 20:33 Discharged to home ambulatory, with family. tl1 20:33 Condition: good 20:33 Discharge instructions given to patient, Instructed on discharge instructions, follow up and referral plans. medication usage, Demonstrated understanding of instructions, follow-up care, medications, Prescriptions given X 2. 20:46 Patient left the ED. tl1 Signatures: Katlyn Hamlin, RN RN Elijah Lopez PA PA [facility] Dora Carpio, RN RN tl1 Galina Sampson sb2
--- NOTE | 2018-11-02 20:20 | EDPHYS ---
Physician Documentation [facility] Name: Flower Cruz Age: 28 yrs Sex: Female : 1990 Arrival Date: 11/02/2018 Time: 18:20 Bed 17 Private MD: None, None ED Physician Duane Tirado HPI: 11/02 20:11 This 28 yrs old Black Female presents to ER via Ambulatory with complaints of Back Pain jmm - SPASMS. 20:11 The patient presents with pain that is acute, with no known mechanism of injury. Onset: jmm The symptoms/episode began/occurred gradually. The pain does not radiate. Associated signs and symptoms: Pertinent negatives: fever, SOB. Patient complains of left sided subscapular back pain which is similar to previous episodes over the past 2 month. Patient denies chest pain or shortness of breath. . 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 - Social history:: Smoking status: Patient/guardian denies using tobacco, Patient/guardian denies using alcohol, street drugs. - Ebola Screening: : Patient negative for fever greater than or equal to 101.5 degrees Fahrenheit, and additional compatible Ebola Virus Disease symptoms Patient denies exposure to infectious person Patient denies travel to an Ebola-affected area in the 21 days before illness onset No symptoms or risks identified at this time. ROS: 20:11 Constitutional: Negative for fever, chills, and weight loss, Cardiovascular: Negative jmm for chest pain, palpitations, and edema, Respiratory: Negative for shortness of breath, cough, wheezing, and pleuritic chest pain. 20:11 Back: Positive for pain with movement. 20:11 All other systems are negative. Exam: 20:11 Head/Face: atraumatic. Eyes: EOMI, no conjunctival erythema appreciated ENT: Moist jmm Mucus Membranes Neck: Trachea midline, Supple Chest/axilla: Normal chest wall appearance and motion. Cardiovascular: Regular rate and rhythm. No edema appreciated Respiratory: Normal respirations, no respiratory distress appreciated Abdomen/GI: Non distended, soft 20:11 Constitutional: The patient appears in no acute distress, alert, awake. 20:11 Back: left subscapular pain on palpation, no vert pt tenderness. 20:11 Musculoskeletal/extremity: ROM: intact in all extremities. 20:11 Neuro: Orientation: is normal, Mentation: is normal, Memory: is normal, Gait: is steady. 20:11 Psych: Behavior/mood is pleasant, cooperative. Vital Signs: 18:32 BP 141 / 99; Pulse 74; Resp 16; Temp 99.3; Pulse Ox 99% ; Weight 58.97 kg; Height 5 ft. ch (152.40 cm); Pain 8/10; 19:15 BP 138 / 99; Pulse 61; Resp 17; Pulse Ox 97% ; tl1 20:32 BP 142 / 97; Pulse 69; Resp 16; Temp 99; Pulse Ox 98% on R/A; Pain 8/10; tl1 18:32 Body Mass Index 25.39 (58.97 kg, 152.40 cm) MDM: 19:59 Patient medically screened. [facility] 20:11 Data reviewed: vital signs, nurses notes. Counseling: I had a detailed discussion with vern the patient and/or guardian regarding: the historical points, exam findings, and any diagnostic results supporting the discharge/admit diagnosis, the need for outpatient follow up, to return to the emergency department if symptoms worsen or persist or if there are any questions or concerns that arise at home. ED course: Symptoms appear chronic. I do not currently suspect PE. Pain is elicited on ROM and palpation. Patient prescribed muscle relaxer and advised to follow up PCP. Patient is otherwise given strict return precautions. Patient understood and agrees with the plan of care. . 11/02 20:16 Order name: Urine Dipstick--Ancillary (enter results) co 11/02 20:16 Order name: Urine --Ancillary (enter results) co 11/02 20:07 Order name: Urine Dipstick-Ancillary (obtain specimen); Complete Time: 20:15 therese 11/02 20:07 Order name: Urine Test (obtain specimen); Complete Time: 20:15 [facility] Administered Medications: No medications were administered Disposition: 11/03 07:15 Co-signature as Attending Physician, Duane Tirado MD I agree with the assessment and kdr plan of care. Disposition: 11/02/18 20:19 Discharged to Home. Impression: Muscle spasm. - Condition is Stable. - Discharge Instructions: Spasticity. - Prescriptions for Zanaflex 4 mg Oral Tablet - take 1 tablet by ORAL route every 8 hours As needed; 20 tablet. Ibuprofen 800 mg Oral Tablet - take 1 tablet by ORAL route every 8 hours As needed take with food; 30 tablet. - Medication Reconciliation Form, Thank You Letter, Antibiotic Education, Prescription Opioid Use, Work release form form. - Follow up: Private Physician; When: 2 - 3 days; Reason: Recheck today's complaints, Continuance of care, Re-evaluation by your physician. Signatures: Dispatcher [employer] EDKatlyn Green, RN RN Duane Blanco MD MD kdr Mickail, Joel, PA PA jmm Lasagna, Tonya, RN RN tl1 Corrections: (The following items were deleted from the chart) 11/02 20:46 20:19 11/02/2018 20:19 Discharged to Home. Impression: Muscle spasm. Condition is tl1 Stable. Forms are Medication Reconciliation Form, Thank You Letter, Antibiotic Education, Prescription Opioid Use. Follow up: Private Physician; When: 2 - 3 days; Reason: Recheck today's complaints, Continuance of care, Re-evaluation by your physician. vern
[2018-11-02 21:08] LABS: Urine Blood NEGATIVE (NEG); Urine Glucose NEGATIVE (NEG); Urine Protein NEGATIVE (NEG)
[2018-11-02 21:10] VITALS: BP 142/97; TEMP 99; O2SAT 98
== END 2018-11-02 20:46 | disposition home or self-care (01) ==
LOC: ER 18:19
DX: M62.830 Muscle spasm of back (principal)
CPT/HCPCS: 81003; 81025; 99282

== ENCOUNTER 2018-11-05 11:46 | Emergency (ER) | payer SELFPAY ==
[2018-11-05] MEDS ORDERED: METHYLPREDNISOLONE 125 MG INJ ONE (13:53)
[2018-11-05] MEDS ORDERED: LEVALBUTEROL 1.25 MG/3 ML NEB ONE (13:53)
--- NOTE | 2018-11-05 14:12 | RAD REPORT ---
EXAM DESCRIPTION: RAD - Chest Pa And Lat (2 Views) - 11/05/2018 1:55 pm CLINICAL HISTORY: Cough;Dyspnea Chest pain. COMPARISON: No comparisons FINDINGS: The lungs are clear. The heart is normal in size. No displaced fractures. IMPRESSION: No acute or concerning finding suspected.
--- NOTE | 2018-11-05 14:40 | ER ---
Nurse's Notes [facility] Name: Flower Cruz Age: 28 yrs Sex: Female : 1990 Arrival Date: 11/05/2018 Time: 11:47 Bed 23 Private MD: None, None Diagnosis: Acute bronchitis Presentation: 11/05 11:56 Presenting complaint: Patient states: difficulty breathing on exertion and chest pains, iw started last night, +cough, clear mucous, no fever, no hx of asthma. Transition of care: patient was not received from another setting of care. Onset of symptoms was November 04, 2018. Risk Assessment: Do you want to hurt yourself or someone else? Patient reports no desire to harm self or others. Initial Sepsis Screen: Does the patient meet any 2 criteria? No. Patient's initial sepsis screen is negative. Does the patient have a suspected source of infection? No. Patient's initial sepsis screen is negative. Care prior to arrival: None. 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 - Social history:: Smoking status: Patient/guardian denies using tobacco. - Ebola Screening: : Patient negative for fever greater than or equal to 101.5 degrees Fahrenheit, and additional compatible Ebola Virus Disease symptoms Patient denies exposure to infectious person Patient denies travel to an Ebola-affected area in the 21 days before illness onset No symptoms or risks identified at this time. Screenin:08 Abuse screen: Denies threats or abuse. Nutritional screening: No deficits noted. tl3 Tuberculosis screening: No symptoms or risk factors identified. Fall Risk None identified. Assessment: 13:08 General: Appears uncomfortable, slender, well groomed, well developed, well nourished, tl3 Behavior is calm, cooperative, appropriate for age. Pain: Complains of pain in mid chest with deep breathing. Neuro: Level of Consciousness is awake, alert, obeys commands, Oriented to person, place, time, situation, Appropriate for age. Cardiovascular: Heart tones S1 S2 present Patient's skin is warm and dry. Respiratory: Airway is patent Respiratory effort is even, unlabored, Respiratory pattern is regular, symmetrical, Breath sounds are coarse bilaterally. Breath sounds with wheezes in right upper lobe. Respiratory: Reports cough that is since yesterday. GI: No deficits noted. No signs and/or symptoms were reported involving the gastrointestinal system. : No deficits noted. No signs and/or symptoms were reported regarding the genitourinary system. EENT:. Derm: No deficits noted. No signs and/or symptoms reported regarding the dermatologic system. Musculoskeletal: No deficits noted. No signs and/or symptoms reported regarding the musculoskeletal system. 15:05 Reassessment: Patient appears in no apparent distress at this time. Patient and/or ed1 family updated on plan of care and expected duration. Pain level reassessed. Patient is alert, oriented x 3, equal unlabored respirations, skin warm/dry/pink. Patient states feeling better. Patient states symptoms have improved. Vital Signs: 11:57 BP 137 / 99; Pulse 78; Resp 18; Temp 98.3; Pulse Ox 98% on R/A; Weight 58.97 kg; Height iw 5 ft. 0 in. (152.40 cm); Pain 7/10; 13:08 BP 153 / 103; Pulse 78; Resp 22; Pulse Ox 100% on R/A; tl3 15:05 BP 145 / 102; Pulse 77; Resp 17; Pulse Ox 100% on R/A; Pain 4/10; ed1 11:57 Body Mass Index 25.39 (58.97 kg, 152.40 cm) iw ED Course: 11:47 Patient arrived in ED. sb2 11:47 None, None is Private Physician. sb2 11:57 Triage completed. iw 11:58 Arm band placed on. iw 13:06 Jayme Escalante PA is PHCP. jr8 13:06 Eladio Jeffries MD is Attending Physician. jr8 13:07 Minal Dunlap, RADHA is Primary Nurse. tl3 13:08 Patient has correct armband on for positive identification. Bed in low position. Call tl3 light in reach. Side rails up X 1. manufacturing test engineer on. Pulse ox on. 13:50 Patient moved to radiology. tl3 13:50 No provider procedures requiring assistance completed. Patient did not have IV access tl3 during this emergency room visit. 13:55 XRAY Chest Pa And Lat (2 Views) In Process Unspecified. EDMS Administered Medications: 13:50 Drug: SOLU-Medrol 125 mg Route: IM; Site: right gluteus; tl3 14:03 Follow up: Response: No adverse reaction tl3 14:03 Drug: Xopenex 1.25 mg Route: Inhalation; tl3 Outcome: 14:40 Discharge ordered by MD. tomlinson 15:05 Discharged to home ambulatory. ed1 15:05 Condition: good 15:05 Discharge instructions given to patient, Instructed on discharge instructions, follow up and referral plans. medication usage, Demonstrated understanding of instructions, follow-up care, medications, Prescriptions given X 3. 15:06 Patient left the ED. ed1 Signatures: Dispatcher [employer] EDMS Sonia Pena, RN RN iw Apolonia Pinedo LVN GLASSBLOWER ed1 Jayme Escalante PA PA jr8 Galina Sampson sb2 Minal Dunlap, RADHA RN tl3
--- NOTE | 2018-11-05 14:41 | EDPHYS ---
Physician Documentation [facility] Name: Flower Cruz Age: 28 yrs Sex: Female : 1990 Arrival Date: 11/05/2018 Time: 11:47 Bed 23 Private MD: None, None ED Physician Eladio Jeffries HPI: 11/05 14:35 This 28 yrs old Black Female presents to ER via Ambulatory with complaints of Painful jr8 Cough. 14:35 The patient or guardian reports cough, that is intermittent, described as mild, with no jr8 sputum, difficulty breathing. Onset: The symptoms/episode began/occurred acutely, today. Severity of symptoms: At their worst the symptoms were mild, in the emergency department the symptoms are unchanged. Modifying factors: The symptoms are alleviated by nothing, the symptoms are aggravated by nothing. Associated signs and symptoms: The patient has no apparent associated signs or symptoms. The patient has not experienced similar symptoms in the past. The patient has not recently seen a physician. 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 - Social history:: Smoking status: Patient/guardian denies using tobacco. - Ebola Screening: : Patient negative for fever greater than or equal to 101.5 degrees Fahrenheit, and additional compatible Ebola Virus Disease symptoms Patient denies exposure to infectious person Patient denies travel to an Ebola-affected area in the 21 days before illness onset No symptoms or risks identified at this time. ROS: 14:35 Eyes: Negative for injury, pain, redness, and discharge, ENT: Negative for injury, jr8 pain, and discharge, Neck: Negative for injury, pain, and swelling, Cardiovascular: Negative for chest pain, palpitations, and edema, Abdomen/GI: Negative for abdominal pain, nausea, vomiting, diarrhea, and constipation, Back: Negative for injury and pain, MS/Extremity: Negative for injury and deformity, Skin: Negative for injury, rash, and discoloration, Neuro: Negative for headache, weakness, numbness, tingling, and seizure. 14:35 Respiratory: Positive for cough, with no reported sputum, shortness of breath, wheezing. Exam: 14:35 Eyes: Pupils equal round and reactive to light, extra-ocular motions intact. Lids and jr8 lashes normal. Conjunctiva and sclera are non-icteric and not injected. Cornea within normal limits. Periorbital areas with no swelling, redness, or edema. ENT: Nares patent. No nasal discharge, no septal abnormalities noted. Tympanic membranes are normal and external auditory canals are clear. Oropharynx with no redness, swelling, or masses, exudates, or evidence of obstruction, uvula midline. Mucous membranes moist. Neck: Trachea midline, no thyromegaly or masses palpated, and no cervical lymphadenopathy. Supple, full range of motion without nuchal rigidity, or vertebral point tenderness. No Meningismus. Cardiovascular: Regular rate and rhythm with a normal S1 and S2. No gallops, murmurs, or rubs. Normal PMI, no JVD. No pulse deficits. Abdomen/GI: Soft, non-tender, with normal bowel sounds. No distension or tympany. No guarding or rebound. No evidence of tenderness throughout. Back: No spinal tenderness. No costovertebral tenderness. Full range of motion. Skin: Warm, dry with normal turgor. Normal color with no rashes, no lesions, and no evidence of cellulitis. MS/ Extremity: Pulses equal, no cyanosis. Neurovascular intact. Full, normal range of motion. Neuro: Awake and alert, GCS 15, oriented to person, place, time, and situation. Cranial nerves II-XII grossly intact. Motor strength 5/5 in all extremities. Sensory grossly intact. Cerebellar exam normal. Normal gait. 14:35 Respiratory: the patient does not display signs of respiratory distress, Respirations: tachypnea, that is mild, Breath sounds: wheezing: expiratory that is mild. Vital Signs: 11:57 BP 137 / 99; Pulse 78; Resp 18; Temp 98.3; Pulse Ox 98% on R/A; Weight 58.97 kg; Height iw 5 ft. 0 in. (152.40 cm); Pain 7/10; 13:08 BP 153 / 103; Pulse 78; Resp 22; Pulse Ox 100% on R/A; tl3 15:05 BP 145 / 102; Pulse 77; Resp 17; Pulse Ox 100% on R/A; Pain 4/10; ed1 11:57 Body Mass Index 25.39 (58.97 kg, 152.40 cm) iw MDM: 13:07 Patient medically screened. jr8 14:35 Data reviewed: vital signs, nurses notes, radiologic studies, plain films, and as a jr8 result, I will discharge patient. Data interpreted: Pulse oximetry: on room air is 100 %. Interpretation: normal. Counseling: I had a detailed discussion with the patient and/or guardian regarding: the historical points, exam findings, and any diagnostic results supporting the discharge/admit diagnosis, radiology results, the need for outpatient follow up, a family practitioner, to return to the emergency department if symptoms worsen or persist or if there are any questions or concerns that arise at home. Response to treatment: the patient's symptoms have markedly improved after treatment. 14:39 Counseling: I had a detailed discussion with the patient and/or guardian regarding: the jr8 presence of at least one elevated blood pressure reading (>120/80) during this emergency department visit. Special discussion: I have referred the patient to see his PCP for further evaluation of high blood pressure. 11/05 13:37 Order name: XRAY Chest Pa And Lat (2 Views); Complete Time: 14:34 jr8 Administered Medications: 13:50 Drug: SOLU-Medrol 125 mg Route: IM; Site: right gluteus; tl3 14:03 Follow up: Response: No adverse reaction tl3 14:03 Drug: Xopenex 1.25 mg Route: Inhalation; tl3 Disposition: 11/06 07:04 Co-signature as Attending Physician, Eladio Jeffries MD I agree with the assessment and pierre plan of care. Disposition: 11/05/18 14:40 Discharged to Home. Impression: Acute bronchitis. - Condition is Stable. - Discharge Instructions: Acute Bronchitis, Adult. - Prescriptions for Prednisone 20 mg Oral Tablet - take 1 tablet by ORAL route once daily for 5 days; 5 tablet. Albuterol Sulfate 90 mcg/actuation - inhale 1-2 puff by INHALATION route every 4-6 hours; 1 Inhaler. Guaifenesin AC 10- 100 mg/5 mL Oral Liquid - take 10 milliliter by ORAL route every 4 hours As needed; 240 milliliter. - Work release form, Medication Reconciliation Form, Thank You Letter, Antibiotic Education, Prescription Opioid Use form. - Follow up: Private Physician; When: 2 - 3 days; Reason: Recheck today's complaints, Continuance of care, Re-evaluation by your physician. - Problem is new. - Symptoms have improved. Signatures: Dispatcher [employer] EDMS Eladio Jeffries MD MD cha Williams, Irene, RN RN iw Apolonia Pinedo, SMALL MACHINE BINDERY OPERATOR SMALL MACHINE BINDERY OPERATOR ed1 Jayme Escalante, PA PA jr8 Minal Dunlap, RN RN tl3 Corrections: (The following items were deleted from the chart) 11/05 15:06 14:40 11/05/2018 14:40 Discharged to Home. Impression: Acute bronchitis. Condition is ed1 Stable. Forms are Medication Reconciliation Form, Thank You Letter, Antibiotic Education, Prescription Opioid Use. Follow up: Private Physician; When: 2 - 3 days; Reason: Recheck today's complaints, Continuance of care, Re-evaluation by your physician. Problem is new. Symptoms have improved. jr8
[2018-11-05 15:11] VITALS: TEMP 98.3
[2018-11-05 15:12] VITALS: O2SAT 100
[2018-11-05 15:14] VITALS: BP 145/102
== END 2018-11-05 15:06 | disposition home or self-care (01) ==
LOC: ER 11:46
DX: J20.9 Acute bronchitis, unspecified (principal)
CPT/HCPCS: 71046; 96372; 99285; J2930

== ENCOUNTER 2019-11-06 09:05 | Emergency (ER) | payer OTHER ==
--- OUTSIDE RECORDS SUMMARY | 2019-11-06 09:07 | XMS REPORT ---
:1990 [facility] [address] [place] [address] [address] [place] [address] Care Team Providers Name Role Phone Unavailable Unavailable Unavailable Problems This patient has no known problems. Allergies, Adverse Reactions, Alerts This patient has no known allergies or adverse reactions. Medications This patient has no known medications.
--- NOTE | 2019-11-06 10:11 | ER ---
Nurse's Notes [facility] Name: Flower Cruz Age: 29 yrs Sex: Female : 1990 Arrival Date: 11/06/2019 Time: 09:06 Bed 6 Private MD: Diagnosis: Upper back pain Presentation: 11/06 09:11 Presenting complaint: Patient states: back pain that began yesterday. Pt states "I am iw almost 8 months ". Pt states "they checked me out at labor and delivery and said that I was having no major contractions and they called Dr. Fung". Pt denies injury to back. Pt denies vaginal bleeding, denies vaginal discharge. Transition of care: patient was not received from another setting of care. Onset of symptoms was October 2019. Risk Assessment: Do you want to hurt yourself or someone else? Patient reports no desire to harm self or others. Initial Sepsis Screen: Does the patient meet any 2 criteria? No. Patient's initial sepsis screen is negative. Does the patient have a suspected source of infection? No. Patient's initial sepsis screen is negative. Care prior to arrival: None. 09:11 Method Of Arrival: Wheelchair iw 09:11 Acuity: JUWAN 3 iw IMPERSONATOR CHARACTER: 09:13 3, Full Term 2, Premature 0, 0, Living 2, LMP 04/11/2019 iw Historical: - Allergies: 09:13 No Known Allergies; iw - PMHx: 09:13 Anemia; Back pain; iw - PSHx: 09:13 ; iw - Immunization history:: Adult Immunizations up to date. - Social history:: Smoking status: Patient/guardian denies using tobacco. - Ebola Screening: : No symptoms or risks identified at this time. Screenin:36 Abuse screen: Denies threats or abuse. Denies injuries from another. Nutritional mg2 screening: No deficits noted. Tuberculosis screening: No symptoms or risk factors identified. Fall Risk None identified. Assessment: 09:35 General: Appears in no apparent distress. comfortable, Behavior is calm, cooperative. mg2 Pain: Complains of pain in back Pain does not radiate. Pain currently is 4 out of 10 on a pain scale. Quality of pain is described as spasm. Neuro: Level of Consciousness is awake, alert, obeys commands, Oriented to person, place, time, situation. Cardiovascular: Capillary refill < 3 seconds Patient's skin is warm and dry. Respiratory: Airway is patent Respiratory effort is even, unlabored, Respiratory pattern is regular, symmetrical. GI: No signs and/or symptoms were reported involving the gastrointestinal system. : No signs and/or symptoms were reported regarding the genitourinary system. EENT: No signs and/or symptoms were reported regarding the EENT system. Derm: Skin is intact, is healthy with good turgor, Skin is pink, warm \\T\\ dry. normal. Musculoskeletal: Circulation, motion, and sensation intact. Capillary refill < 3 seconds, Reports pain in back since yesterday. Pain is 4 out of 10 on a pain scale. Vital Signs: 09:13 BP 154 / 79; Pulse 90; Resp 18 S; Temp 98.3(O); Pulse Ox 100% on R/A; Weight 63.5 kg iw (R); Height 5 ft. 0 in. (152.40 cm) (R); Pain 8/10; 10:14 BP 145 / 78; Pulse 80; Resp 18; Temp 98; Pulse Ox 100% on R/A; mg2 09:13 Body Mass Index 27.34 (63.50 kg, 152.40 cm) iw ED Course: 09:06 Patient arrived in ED. as 09:11 Duane Tirado MD is Attending Physician. kdr 09:12 Triage completed. iw 09:12 Arm band placed on. iw 09:30 Elmo Perez RN is Primary Nurse. mg2 09:36 Patient has correct armband on for positive identification. Pulse ox on. NIBP on. Door mg2 closed. Warm blanket given. 09:36 No provider procedures requiring assistance completed. Patient did not have IV access mg2 during this emergency room visit. Administered Medications: No medications were administered Outcome: 10:07 Discharge ordered by . kdr 10:14 Discharged to home ambulatory, with family. mg2 10:14 Condition: stable 10:14 Discharge instructions given to patient, Instructed on discharge instructions, follow up and referral plans. medication usage, Demonstrated understanding of instructions, follow-up care, medications, Prescriptions given X 2. 10:14 Patient left the ED. mg2 Signatures: Duane Tirado MD MD kdr Aubree Dillard Irene, RN RN iw Gardose, Elmo, RN RN mg2
--- NOTE | 2019-11-06 10:11 | EDPHYS ---
Physician Documentation [facility] Name: Flower Cruz Age: 29 yrs Sex: Female : 1990 Arrival Date: 11/06/2019 Time: 09:06 Bed 6 Private MD: ED Physician Duane Tirado HPI: 11/06 10:46 This 29 yrs old Black Female presents to ER via Wheelchair with complaints of Back Pain.kdr 10:46 The patient presents with pain that is acute. The symptoms are located in the left kdr subscapular area and right subscapular area. Onset: The symptoms/episode began/occurred acutely, 3 day(s) ago. The pain does not radiate. Associated signs and symptoms: The patient has no apparent associated signs or symptoms. The problem was sustained without known cause, Occurs periodically spontaneously. Modifying factors: The patient symptoms are alleviated by nothing, the patient symptoms are aggravated by any movement. Severity of symptoms: At their worst the symptoms were mild, in the emergency department the symptoms are unchanged. The patient has experienced similar episodes in the past, multiple times, with the last episode occurring last year, today's symptoms are similar, and the symptoms today are exactly the same, to previous Last year. The patient has been recently seen by a physician: The patient is 8 months . PIG CASTER: 09:13 3, Full Term 2, Premature 0, 0, Living 2, LMP 04/11/2019 iw Historical: - Allergies: 09:13 No Known Allergies; iw - PMHx: 09:13 Anemia; Back pain; iw - PSHx: 09:13 ; iw - Immunization history:: Adult Immunizations up to date. - Social history:: Smoking status: Patient/guardian denies using tobacco. - Ebola Screening: : No symptoms or risks identified at this time. ROS: 10:46 Constitutional: Negative for fever, chills, and weight loss, Eyes: Negative for injury, kdr pain, redness, and discharge, ENT: Negative for injury, pain, and discharge, Neck: Negative for injury, pain, and swelling, Cardiovascular: Negative for chest pain, palpitations, and edema, Respiratory: Negative for shortness of breath, cough, wheezing, and pleuritic chest pain, Abdomen/GI: Negative for abdominal pain, nausea, vomiting, diarrhea, and constipation, : Negative for injury, bleeding, discharge, and swelling, MS/Extremity: Negative for injury and deformity, Skin: Negative for injury, rash, and discoloration, Neuro: Negative for headache, weakness, numbness, tingling, and seizure activity. Psych: Negative for depression, anxiety, suicide ideation, homicidal ideation, and hallucinations, Allergy/Immunology: Negative for hives, rash, and allergies, Endocrine: Negative for neck swelling, polydipsia, polyuria, polyphagia, and marked weight changes, Hematologic/Lymphatic: Negative for swollen nodes, abnormal bleeding, and unusual bruising. 10:46 Back: Positive for pain at rest, pain with movement, of the left subscapular area and right subscapular area. Exam: 10:46 Constitutional: This is a well developed, well nourished patient who is awake, alert, kdr and in no acute distress. Head/Face: Normocephalic, atraumatic. Eyes: Pupils equal round and reactive to light, extra-ocular motions intact. Lids and lashes normal. Conjunctiva and sclera are non-icteric and not injected. Cornea within normal limits. Periorbital areas with no swelling, redness, or edema. Neck: Trachea midline, no thyromegaly or masses palpated, and no cervical lymphadenopathy. Supple, full range of motion without nuchal rigidity, or vertebral point tenderness. No Meningismus. Chest/axilla: Normal chest wall appearance and motion. Nontender with no deformity. No lesions are appreciated. Cardiovascular: Regular rate and rhythm with a normal S1 and S2. No gallops, murmurs, or rubs. Normal PMI, no JVD. No pulse deficits. Respiratory: Lungs have equal breath sounds bilaterally, clear to auscultation and percussion. No rales, rhonchi or wheezes noted. No increased work of breathing, no retractions or nasal flaring. Abdomen/GI: Soft, non-tender, with normal bowel sounds. No distension or tympany. No guarding or rebound. No evidence of tenderness throughout. Skin: Warm, dry with normal turgor. Normal color with no rashes, no lesions, and no evidence of cellulitis. MS/ Extremity: Pulses equal, no cyanosis. Neurovascular intact. Full, normal range of motion. Neuro: Awake and alert, GCS 15, oriented to person, place, time, and situation. Cranial nerves II-XII grossly intact. Motor strength 5/5 in all extremities. Sensory grossly intact. Cerebellar exam normal. Normal gait. Psych: Awake, alert, with orientation to person, place and time. Behavior, mood, and affect are within normal limits. 10:46 Back: pain, that is mild, that is moderate, of the left subscapular area and right subscapular area, ROM is painful, with all movement, Minor/mild, normal spinal alignment noted, CVA tenderness, is absent, muscle spasm, is appreciated in the left subscapular area and right subscapular area. Vital Signs: 09:13 BP 154 / 79; Pulse 90; Resp 18 S; Temp 98.3(O); Pulse Ox 100% on R/A; Weight 63.5 kg iw (R); Height 5 ft. 0 in. (152.40 cm) (R); Pain 8/10; 10:14 BP 145 / 78; Pulse 80; Resp 18; Temp 98; Pulse Ox 100% on R/A; mg2 09:13 Body Mass Index 27.34 (63.50 kg, 152.40 cm) iw MDM: 10:07 Patient medically screened. kdr 10:46 Data reviewed: vital signs, nurses notes. Counseling: I had a detailed discussion with kdr the patient and/or guardian regarding: the historical points, exam findings, and any diagnostic results supporting the discharge/admit diagnosis, the need for outpatient follow up. 11/06 10:08 Order name: Urine Dipstick--Ancillary (enter results) bd 11/06 09:55 Order name: Urine Dipstick-Ancillary (obtain specimen); Complete Time: 10:09 kdr Administered Medications: No medications were administered Disposition: 11/06/19 10:07 Discharged to Home. Impression: Upper back pain. - Condition is Stable. - Discharge Instructions: Musculoskeletal Pain, Back Pain in , Back Pain, Adult, [id number]. - Prescriptions for Tylenol 325 mg Oral Tablet - take 2 tablet by ORAL route every 6 hours as needed; 1 bottle. Zanaflex 4 mg Oral Tablet - take 1 tablet by ORAL route every 8 hours As needed; 20 tablet. - Medication Reconciliation Form, Thank You Letter form. - Follow up: Private Physician; When: 2 - 3 days; Reason: If symptoms return, Further diagnostic work-up, Recheck today's complaints, Continuance of care, Re-evaluation by your physician. - Problem is an acute exacerbation. - Symptoms have improved. Signatures: Dispatcher [employer] EDMS Duane Tirado MD MD kdr Sonia Pena RN RN iw Elmo Perez RN RN mg2 Corrections: (The following items were deleted from the chart) 10:14 10:07 11/06/2019 10:07 Discharged to Home. Impression: Upper back pain. Condition is mg2 Stable. Forms are Medication Reconciliation Form, Thank You Letter, Antibiotic Education, Prescription Opioid Use. Follow up: Private Physician; When: 2 - 3 days; Reason: If symptoms return, Further diagnostic work-up, Recheck today's complaints, Continuance of care, Re-evaluation by your physician. Problem is an acute exacerbation. Symptoms have improved. kdr
[2019-11-06 10:15] LABS: Urine Blood NEGATIVE (NEG); Urine Glucose NEGATIVE (NEG); Urine Protein NEGATIVE (NEG); Urine Specific Gravity 1.015 (1.005-1.030); Urine pH 7.5 (5.0-7.0)
[2019-11-06 10:51] VITALS: O2SAT 100
[2019-11-06 10:52] VITALS: BP 145/78; TEMP 98
== END 2019-11-06 10:14 | disposition home or self-care (01) ==
LOC: ER 09:05
DX: O26.891 Other specified pregnancy related conditions, first trimester (principal); M54.89 Other dorsalgia
CPT/HCPCS: 81003; 99283

== ENCOUNTER 2019-11-19 08:51 | Emergency (ER) | payer OTHER ==
--- OUTSIDE RECORDS SUMMARY | 2019-11-19 08:55 | XMS REPORT ---
:1990 [facility] Address [address] [place] [address] [address] [place] [address] Care Team Providers Name Role Phone Unavailable Unavailable Unavailable Problems This patient has no known problems. Allergies, Adverse Reactions, Alerts This patient has no known allergies or adverse reactions. Medications This patient has no known medications.
--- NOTE | 2019-11-19 09:54 | ER ---
Nurse's Notes [facility] Name: Flower Cruz Age: 29 yrs Sex: Female : 1990 Arrival Date: 11/19/2019 Time: 08:55 Bed 15 Private MD: Diagnosis: Acute upper respiratory infection, unspecified Presentation: 11/19 09:06 Presenting complaint: Patient states: cough and sore throat x 3 days. Pt is 8 months ss , denies fever. Transition of care: patient was not received from another setting of care. Onset of symptoms was November 16, 2019. Risk Assessment: Do you want to hurt yourself or someone else? Patient reports no desire to harm self or others. Initial Sepsis Screen: Does the patient meet any 2 criteria? No. Patient's initial sepsis screen is negative. Does the patient have a suspected source of infection? No. Patient's initial sepsis screen is negative. Care prior to arrival: None. 09:06 Method Of Arrival: Ambulatory ss 09:06 Acuity: JUWAN 4 ss Historical: - Allergies: 09:12 No Known Allergies; ss - Home Meds: 09:12 Vitamin Oral tab 1 tab once daily [Active]; iron oral oral [Active]; ss - PMHx: 09:12 Anemia; Back pain; ss - PSHx: 09:12 ; ss - Immunization history:: Adult Immunizations up to date. - Social history:: Smoking status: Patient denies any tobacco usage or history of. - Ebola Screening: : Patient denies exposure to infectious person Patient denies travel to an Ebola-affected area in the 21 days before illness onset. Screenin:06 Abuse screen: Denies threats or abuse. Denies injuries from another. Nutritional ss screening: No deficits noted. Tuberculosis screening: Never had TB. Fall Risk None identified. Assessment: 09:06 General: Appears uncomfortable, Behavior is calm, cooperative. Pain: Complains of pain ss in sore throat Pain currently is 6 out of 10 on a pain scale. Quality of pain is described as sore Pain began 2-3 days ago. Is continuous. Neuro: Level of Consciousness is awake, alert, obeys commands, Oriented to person, place, time, situation. Cardiovascular: Pulses are palpable in right radial artery and left radial artery. Respiratory: Reports cough that is productive, hacking, persistent since x 3 days Airway is patent Trachea midline Respiratory effort is even, unlabored, Respiratory pattern is regular, symmetrical. : No signs and/or symptoms were reported regarding the genitourinary system. EENT: Throat is reddened bilaterally. Derm: Skin is pink, warm \T\ dry. normal. Musculoskeletal: Circulation, motion, and sensation intact. Range of motion: intact in all extremities, Swelling absent. 10:08 Reassessment: Patient appears in no apparent distress at this time. Patient is alert, ca1 oriented x 3, equal unlabored respirations, skin warm/dry/pink. Respiratory: Breath sounds are clear. Vital Signs: 09:05 BP 134 / 78; Pulse 88; Resp 18; Temp 97.5(TE); Pulse Ox 100% on R/A; Weight 65.77 kg; ss Height 5 ft. 0 in. (152.40 cm); Pain 6/10; 10:08 BP 131 / 79; Pulse 90; Resp 15 S; Temp 97.8(O); Pulse Ox 99% on R/A; ca1 09:05 Body Mass Index 28.32 (65.77 kg, 152.40 cm) ED Course: 08:55 Patient arrived in ED. ag5 08:55 Amaris Blanchard FNP-C is [facility]. kb 08:55 Eladio Jeffries MD is Attending Physician. kb 09:05 Arm band placed on left wrist. ss 09:06 Patient has correct armband on for positive identification. Bed in low position. Call ss light in reach. 09:07 Nicola Valdivia, RN is Primary Nurse. bp 09:10 Triage completed. ss 10:12 No provider procedures requiring assistance completed. Patient did not have IV access ca1 during this emergency room visit. Administered Medications: No medications were administered Outcome: 09:54 Discharge ordered by . kb 10:12 Discharged to home ambulatory. ca1 10:12 Condition: stable 10:12 Discharge instructions given to patient, Instructed on discharge instructions, follow up and referral plans. Demonstrated understanding of instructions, follow-up care. 10:14 Patient left the ED. ca1 Signatures: Amaris Blanchard FNP-C FNP-Ckb Smirch, Shelby, RN RN Nicola Valdivia RN RN bp Acob, Cheryl, RN RN ca1 Molina Romero ag5
--- NOTE | 2019-11-19 09:54 | EDPHYS ---
Physician Documentation [facility] Name: Flower Cruz Age: 29 yrs Sex: Female : 1990 Arrival Date: 11/19/2019 Time: 08:55 Bed 15 Private MD: ED Physician Eladio Jeffries HPI: 11/19 09:53 This 29 yrs old Black Female presents to ER via Ambulatory with complaints of Cough, kb Sore Throat. 09:53 The patient or guardian reports cough, that is intermittent, described as moderate, kb with productive sputum, flu symptoms, myalgias. Onset: The symptoms/episode began/occurred 4 day(s) ago. Severity of symptoms: At their worst the symptoms were moderate, in the emergency department the symptoms are unchanged. Modifying factors: The symptoms are alleviated by nothing, the symptoms are aggravated by nothing. Associated signs and symptoms: Pertinent positives: rhinorrhea, sore throat. The patient has not experienced similar symptoms in the past. The patient has not recently seen a physician. Historical: - Allergies: 09:12 No Known Allergies; ss - Home Meds: 09:12 Vitamin Oral tab 1 tab once daily [Active]; iron oral oral [Active]; ss - PMHx: 09:12 Anemia; Back pain; ss - PSHx: 09:12 ; ss - Immunization history:: Adult Immunizations up to date. - Social history:: Smoking status: Patient denies any tobacco usage or history of. - Ebola Screening: : Patient denies exposure to infectious person Patient denies travel to an Ebola-affected area in the 21 days before illness onset. ROS: 09:52 Neck: Negative for injury, pain, and swelling, Cardiovascular: Negative for chest pain, kb palpitations, and edema, Abdomen/GI: Negative for abdominal pain, nausea, vomiting, diarrhea, and constipation, Back: Negative for injury and pain, MS/Extremity: Negative for injury and deformity, Skin: Negative for injury, rash, and discoloration, Neuro: Negative for headache, weakness, numbness, tingling, and seizure. 09:52 Constitutional: Positive for body aches. 09:52 ENT: Positive for rhinorrhea. 09:52 Respiratory: Positive for cough. Exam: 09:52 Constitutional: This is a well developed, well nourished patient who is awake, alert, kb and in no acute distress. Head/Face: Normocephalic, atraumatic. ENT: Nares patent. No nasal discharge, no septal abnormalities noted. Tympanic membranes are normal and external auditory canals are clear. Oropharynx with no redness, swelling, or masses, exudates, or evidence of obstruction, uvula midline. Mucous membranes moist. Neck: Trachea midline, no thyromegaly or masses palpated, and no cervical lymphadenopathy. Supple, full range of motion without nuchal rigidity, or vertebral point tenderness. No Meningismus. Chest/axilla: Normal chest wall appearance and motion. Nontender with no deformity. No lesions are appreciated. Cardiovascular: Regular rate and rhythm with a normal S1 and S2. No gallops, murmurs, or rubs. Normal PMI, no JVD. No pulse deficits. Respiratory: Lungs have equal breath sounds bilaterally, clear to auscultation and percussion. No rales, rhonchi or wheezes noted. No increased work of breathing, no retractions or nasal flaring. Abdomen/GI: Soft, non-tender, with normal bowel sounds. No distension or tympany. No guarding or rebound. No evidence of tenderness throughout. Skin: Warm, dry with normal turgor. Normal color with no rashes, no lesions, and no evidence of cellulitis. MS/ Extremity: Pulses equal, no cyanosis. Neurovascular intact. Full, normal range of motion. Neuro: Awake and alert, GCS 15, oriented to person, place, time, and situation. Cranial nerves II-XII grossly intact. Motor strength 5/5 in all extremities. Sensory grossly intact. Cerebellar exam normal. Normal gait. Vital Signs: 09:05 BP 134 / 78; Pulse 88; Resp 18; Temp 97.5(TE); Pulse Ox 100% on R/A; Weight 65.77 kg; ss Height 5 ft. 0 in. (152.40 cm); Pain 6/10; 10:08 BP 131 / 79; Pulse 90; Resp 15 S; Temp 97.8(O); Pulse Ox 99% on R/A; ca1 09:05 Body Mass Index 28.32 (65.77 kg, 152.40 cm) ss MDM: 09:16 Patient medically screened. kb 09:53 Data reviewed: vital signs, nurses notes. Data interpreted: Pulse oximetry: on room air kb is 100 %. Interpretation: normal. Counseling: I had a detailed discussion with the patient and/or guardian regarding: the historical points, exam findings, and any diagnostic results supporting the discharge/admit diagnosis, lab results, the need for outpatient follow up, a family practitioner, to return to the emergency department if symptoms worsen or persist or if there are any questions or concerns that arise at home. 11/19 09:16 Order name: Strep; Complete Time: 09:43 kb 11/19 09:16 Order name: Flu; Complete Time: 09:52 kb 11/19 09:44 Order name: Throat Culture EDMS Administered Medications: No medications were administered Disposition: 11/20 07:44 Co-signature as Attending Physician, Eladio Jeffries MD I agree with the assessment and pierre plan of care. Disposition: 11/19/19 09:54 Discharged to Home. Impression: Acute upper respiratory infection, unspecified. - Condition is Stable. - Discharge Instructions: Upper Respiratory Infection, Adult, [id number], Viral Respiratory Infection, Soua-Vb-Vcch. - Medication Reconciliation Form, Thank You Letter, Antibiotic Education, Prescription Opioid Use, Work release form form. - Follow up: Emergency Department; When: As needed; Reason: Worsening of condition. Follow up: Private Physician; When: 2 - 3 days; Reason: Recheck today's complaints, Continuance of care, Re-evaluation by your physician. Signatures: Dispatcher [employer] EDMI Amaris Blanchard, DONALD SHETTY-Eladio Hanley MD MD cha Smirch, Shelby, RN RN ss Ewelina Mims RN RN ca1 Corrections: (The following items were deleted from the chart) 11/19 10:14 09:54 11/19/2019 09:54 Discharged to Home. Impression: Acute upper respiratory ca1 infection, unspecified. Condition is Stable. Forms are Medication Reconciliation Form, Thank You Letter, Antibiotic Education, Prescription Opioid Use. Follow up: Emergency Department; When: As needed; Reason: Worsening of condition. Follow up: Private Physician; When: 2 - 3 days; Reason: Recheck today's complaints, Continuance of care, Re-evaluation by your physician. kb
[2019-11-19 10:22] VITALS: BP 131/79; TEMP 97.8; O2SAT 99
== END 2019-11-19 10:14 | disposition home or self-care (01) ==
LOC: ER 08:51
DX: J06.9 Acute upper respiratory infection, unspecified (principal); D64.9 Anemia, unspecified
CPT/HCPCS: 87070; 87081; 87804; 99281

== ENCOUNTER 2021-01-21 19:49 | Emergency (ER) | payer OTHER ==
--- OUTSIDE RECORDS SUMMARY | 2021-01-21 19:52 | XMS REPORT | Continuity of Care Document ---
:1990 Author Organization [facility] t Address [address] [place] [address] Care Team Providers Name Role Phone Bryant INGRAM, Alessandro Attending Clinician Geoff CHAUHAN Attending Clinician Problems This patient has no known problems. Allergies, Adverse Reactions, Alerts This patient has no known allergies or adverse reactions. Medications This patient has no known medications. Procedures This patient has no known procedures. Encounters Start End Encounter Admission Attending Care Care Encounter Source Date/Time Date/Time Type Type Clinicians Facility Department ID 2020-06-03 2020-06-03 Refill Betsey Hurtado [facility] [id number] 00:00:00 00:00:00 Alessandro Martinez [id number] [place] [id number] [facility] [id number] [address] 2020-03-13 2020-03-13 Refill Bryant Betsey INRUSLAN [id number] 00:00:00 00:00:00 Alessandro Martinez [id number] [place] [id number] [place] [id number] [facility] 2020-03-12 2020-03-12 Refill Bryant Betsey INRUSLAN [id number] 00:00:00 00:00:00 Alessandro Martinez [id number] [place] [id number] [place] [id number] 2020-03-12 2020-03-12 Refill Stephanytoni [facility] [id number] 00:00:00 00:00:00 Lakia Martinez [id number] [place] [id number] [facility] [id number] [facility] [address] [facility] 2020-01-30 2020-01-30 Telemedici Geoff [facility] [id number] 08:29:06 08:44:06 ne Visit Lakia Martinez [id number] [place] [id number] [facility] [phone] [address] Results This patient has no known results.
[2021-01-22 00:30] LABS: SARS-COV-2 RT PCR NEGATIVE (NEGATIVE)
--- NOTE | 2021-01-22 00:33 | EDPHYS ---
Physician Documentation [facility] Name: Flower Cruz Age: 30 yrs Sex: Female : 1990 Arrival Date: 01/21/2021 Time: 19:52 Bed 14 Private MD: ED Physician Eladio Jeffries HPI: 01/21 22:40 This 30 yrs old Black Female presents to ER via Ambulatory with complaints of Sore jr8 Throat, Abdominal Pain, Diarrhea. 22:40 Onset: The symptoms/episode began/occurred gradually, 2 day(s) ago. Severity of jr8 symptoms: At their worst the symptoms were mild, in the emergency department the symptoms are unchanged. Modifying factors: The symptoms are alleviated by nothing, the symptoms are aggravated by swallowing. The patient has not experienced similar symptoms in the past. The patient has not recently seen a physician. 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 - Social history:: Smoking status: Patient denies any tobacco usage or history of. ROS: 22:40 Eyes: Negative for injury, pain, redness, and discharge, Neck: Negative for injury, jr8 pain, and swelling, Cardiovascular: Negative for chest pain, palpitations, and edema, Respiratory: Negative for shortness of breath, cough, wheezing, and pleuritic chest pain, Back: Negative for injury and pain, MS/Extremity: Negative for injury and deformity, Skin: Negative for injury, rash, and discoloration, Neuro: Negative for headache, weakness, numbness, tingling, and seizure. 22:40 ENT: Positive for sore throat, Negative for drainage from ear(s), ear pain, nasal discharge, rhinorrhea, sinus congestion. 22:40 Abdomen/GI: Positive for diarrhea, abdominal cramps, Negative for nausea and vomiting. Exam: 22:40 Eyes: Pupils equal round and reactive to light, extra-ocular motions intact. Lids and jr8 lashes normal. Conjunctiva and sclera are non-icteric and not injected. Cornea within normal limits. Periorbital areas with no swelling, redness, or edema. ENT: Nares patent. No nasal discharge, no septal abnormalities noted. Tympanic membranes are normal and external auditory canals are clear. Oropharynx with no redness, swelling, or masses, exudates, or evidence of obstruction, uvula midline. Mucous membranes moist. Neck: Trachea midline, no thyromegaly or masses palpated, and no cervical lymphadenopathy. Supple, full range of motion without nuchal rigidity, or vertebral point tenderness. No Meningismus. Cardiovascular: Regular rate and rhythm with a normal S1 and S2. No gallops, murmurs, or rubs. Normal PMI, no JVD. No pulse deficits. Respiratory: Lungs have equal breath sounds bilaterally, clear to auscultation and percussion. No rales, rhonchi or wheezes noted. No increased work of breathing, no retractions or nasal flaring. Abdomen/GI: Soft, non-tender, with normal bowel sounds. No distension or tympany. No guarding or rebound. No evidence of tenderness throughout. Back: No spinal tenderness. No costovertebral tenderness. Full range of motion. Skin: Warm, dry with normal turgor. Normal color with no rashes, no lesions, and no evidence of cellulitis. MS/ Extremity: Pulses equal, no cyanosis. Neurovascular intact. Full, normal range of motion. Neuro: Awake and alert, GCS 15, oriented to person, place, time, and situation. Cranial nerves II-XII grossly intact. Motor strength 5/5 in all extremities. Sensory grossly intact. Vital Signs: 20:20 Pulse 64; Resp 16 S; Temp 97.8(TE); Pulse Ox 100% on R/A; Weight 58.97 kg (R); Height 5 ca1 ft. 0 in. (152.40 cm) (R); Pain 5/10; 20:24 BP 152 / 99; ca1 23:00 BP 141 / 70; Pulse 65; Resp 19; Pulse Ox 98% ; rr5 01/22 00:21 BP 145 / 89; Pulse 60; Resp 19; Pulse Ox 99% ; rr5 01/21 20:20 Body Mass Index 25.39 (58.97 kg, 152.40 cm) ca1 MDM: 01/21 22:01 Patient medically screened. [facility] 01/22 00:32 Data reviewed: vital signs, nurses notes, lab test result(s), and as a result, I will jr8 discharge patient. Data interpreted: Pulse oximetry: on room air is 99 %. Interpretation: normal. Counseling: I had a detailed discussion with the patient and/or guardian regarding: the historical points, exam findings, and any diagnostic results supporting the discharge/admit diagnosis, lab results, the need for outpatient follow up, a family practitioner, to return to the emergency department if symptoms worsen or persist or if there are any questions or concerns that arise at home. 01/21 22:25 Order name: Strep; Complete Time: 00:14 [facility] 01/22 00:14 Order name: Throat Culture EDTX 01/22 00:30 Order name: COVID-19/FLU A+B; Complete Time: 00:32 EDTX Administered Medications: No medications were administered Disposition: 07:58 Co-signature as Attending Physician, Eladio Jeffries MD I agree with the assessment and [facility] plan of care. Disposition: 01/22/21 00:33 Discharged to Home. Impression: Viral infection, unspecified. - Condition is Stable. - Discharge Instructions: Antibiotic Resistance, Viral Respiratory Infection. - Prescriptions for Zofran 4 mg Oral Tablet - take 1 tablet by ORAL route every 12 hours As needed; 20 tablet. Tessalon Perles 100 mg Oral Capsule - take 1 capsule by ORAL route every 8 hours As needed; 15 capsule. - Work release form, Medication Reconciliation Form, Thank You Letter, Antibiotic Education, Prescription Opioid Use form. - Follow up: Private Physician; When: 2 - 3 days; Reason: Recheck today's complaints, Continuance of care, Re-evaluation by your physician. - Problem is new. - Symptoms have improved. 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 [facility] 22:25 CORONAVIRUS+MR.LAB.BRZ ordered. [facility] 01/22 00:55 00:33 01/22/2021 00:33 Discharged to Home. Impression: Viral infection, unspecified. rr5 Condition is Stable. Forms are Medication Reconciliation Form, Thank You Letter, Antibiotic Education, Prescription Opioid Use. Follow up: Private Physician; When: 2 - 3 days; Reason: Recheck today's complaints, Continuance of care, Re-evaluation by your physician. Problem is new. Symptoms have improved. jr8
--- NOTE | 2021-01-22 00:33 | ER ---
Nurse's Notes [facility] Name: Flower Cruz Age: 30 yrs Sex: Female : 1990 Arrival Date: 01/21/2021 Time: 19:52 Bed 14 Private MD: Diagnosis: Viral infection, unspecified Presentation: 01/21 20:20 Chief complaint: Patient states: Hoarseness of voice x 1 week. Sore throat today. ca1 Abdominal pain and Diarrhea x 2 days. Coronavirus screen: Client denies travel out of the [place] in the last 14 days. diarrhea, sore throat, Client presents with at least one sign or symptom that may indicate coronavirus-19. Standard/surgical mask placed on the client. Provider contacted for isolation considerations. Ebola Screen: Patient negative for fever greater than or equal to 101.5 degrees Fahrenheit, and additional compatible Ebola Virus Disease symptoms Patient denies exposure to infectious person. Patient denies travel to an Ebola-affected area in the 21 days before illness onset. No symptoms or risks identified at this time. Initial Sepsis Screen: Does the patient meet any 2 criteria? No. Patient's initial sepsis screen is negative. Does the patient have a suspected source of infection? No. Patient's initial sepsis screen is negative. Risk Assessment: Do you want to hurt yourself or someone else? Patient reports no desire to harm self or others. Onset of symptoms was January 21, 2021. 20:20 Method Of Arrival: Ambulatory ca1 20:20 Acuity: JUWAN 3 ca1 Triage Assessment: 22:00 General: Appears in no apparent distress. Behavior is calm, cooperative. 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 - Social history:: Smoking status: Patient denies any tobacco usage or history of. Screenin/25 00:21 Abuse screen: Denies threats or abuse. Denies injuries from another. Nutritional rr5 screening: No deficits noted. Tuberculosis screening: No symptoms or risk factors identified. Fall Risk None identified. Total Horn Fall Scale indicates No Risk (0-24 pts). Assessment: 01/21 22:00 General: Appears in no apparent distress. uncomfortable, Behavior is calm, cooperative, rr5 appropriate for age. 22:00 Pain: Complains of pain in throat Pain currently is 5 out of 10 on a pain scale. rr5 Quality of pain is described as aching, Pain began gradually, Is intermittent. Neuro: Level of Consciousness is awake, alert, obeys commands, Oriented to person, place, time. Cardiovascular: Capillary refill < 3 seconds Patient's skin is warm and dry. Respiratory: Airway is patent Respiratory effort is even, unlabored, Respiratory pattern is regular, symmetrical, GI: No signs and/or symptoms were reported involving the gastrointestinal system. : No signs and/or symptoms were reported regarding the genitourinary system. 22:00 EENT: Throat is clear is pink with gag reflex present. rr5 22:00 Derm: Skin is intact, Skin is pink, warm \T\ dry. Skin temperature is warm. rr5 Musculoskeletal: Circulation, motion, and sensation intact. Capillary refill < 3 seconds. 23:00 Reassessment: Patient appears in no apparent distress at this time. No changes from rr5 previously documented assessment. Patient is alert, oriented x 3, equal unlabored respirations, skin warm/dry/pink. 01/22 00:21 Reassessment: Patient appears in no apparent distress at this time. Patient and/or rr5 family updated on plan of care and expected duration. Pain level reassessed. Patient is alert, oriented x 3, equal unlabored respirations, skin warm/dry/pink. awaiting for covid test result. 00:50 Reassessment: Patient appears in no apparent distress at this time. discharge rr5 instruction given and explained without complaints made. Vital Signs: 01/21 20:20 Pulse 64; Resp 16 S; Temp 97.8(TE); Pulse Ox 100% on R/A; Weight 58.97 kg (R); Height 5 ca1 ft. 0 in. (152.40 cm) (R); Pain 5/10; 20:24 BP 152 / 99; ca1 23:00 BP 141 / 70; Pulse 65; Resp 19; Pulse Ox 98% ; rr5 01/22 00:21 BP 145 / 89; Pulse 60; Resp 19; Pulse Ox 99% ; rr5 01/21 20:20 Body Mass Index 25.39 (58.97 kg, 152.40 cm) ca1 ED Course: 01/21 19:52 Patient arrived in ED. bp1 20:23 Triage completed. ca1 20:23 Arm band placed on right wrist. ca1 21:56 Kan Riley, RN is Primary Nurse. rr5 21:58 Jayme Escalante PA is PHCP. jr8 21:58 Eladio Jeffries MD is Attending Physician. jr8 22:46 COVID swab sent to lab. Flu and/or RSV swab sent to lab. Strep swab sent to lab. rr5 23:00 Patient has correct armband on for positive identification. Bed in low position. Call rr5 light in reach. Pulse ox on. NIBP on. 01/22 00:45 No provider procedures requiring assistance completed. Patient did not have IV access rr5 during this emergency room visit. Administered Medications: No medications were administered Outcome: 00:33 Discharge ordered by . jr8 00:45 Discharged to home ambulatory. rr5 00:45 Condition: stable 00:45 Discharge instructions given to patient, Instructed on discharge instructions, follow up and referral plans. medication usage, Demonstrated understanding of instructions, follow-up care, medications, Prescriptions given X 2. 00:55 Patient left the ED. rr5 Signatures: Jayme Escalante PA PA jr8 Kan Riley, RN RN rr5 Ewelina Mims RN RN ca1 Carolyn Villalba bp1
[2021-01-22 05:19] VITALS: TEMP 97.8
[2021-01-22 05:21] VITALS: BP 145/89; O2SAT 99
== END 2021-01-22 00:55 | disposition home or self-care (01) ==
LOC: ER 19:49
DX: B34.9 Viral infection, unspecified (principal); Z20.822 Contact with and (suspected) exposure to COVID-19
CPT/HCPCS: 87070; 87081; 0240U; 99283